=== PATIENT | female | born 1960 | race Caucasian/White ===

== ENCOUNTER 2020-09-01 08:59 | Outpatient (CLI) | payer BC, SELFPAY ==
--- NOTE | 2020-09-01 09:05 | MM_ITS ---
WS: [id number] BILATERAL SCREENING DIGITAL MAMMOGRAM WITH CAD HISTORY: SCREENING COMPARISON: 06/18/2019 and 06/17/2018 Bilateral CC and MLO views submitted. Computer aided detection analyzed. Breast composition: The breasts are heterogeneously dense, which may obscure small masses. No suspici ous masses, microcalcifications or architectural distortion. Small cluster of calcifications in the p osterior LEFT breast is stable. MM/[id number] IMPRESSION: BI-RADS: 2-Benign FOLLOW UP: 1 Year Follow-up
== END 2020-09-01 09:00 | disposition home or self-care (01) ==
LOC: RADSHAW 09:03
PROVIDERS: PCP Internal Medicine; Visit Provider Internal Medicine
DX: Z12.31 Encounter for screening mammogram for malignant neoplasm of breast (principal)
CPT/HCPCS: 77067